=== PATIENT | female | born 1970 | race American Indian/Alaskan Native ===

== ENCOUNTER 2016-09-09 21:57 | Emergency (ER) | payer OTHER ==
[2016-09-09 23:30] LABS: Basophils % (Auto) 0.3 % (0.0-1.8); Eosinophils % (Auto) 1.2 % (0.0-4.3); Hemoglobin 11.9 gm/dl (10.1-14.3); Mean Corpuscular HGB Conc 31 % (30-34); Mean Corpuscular Volume 74 fl (79-97); Platelet Count 348 K/mm3 (140-440); Red Blood Count 5.17 M/mm3 (3.65-5.03); Red Cell Distribution Width 19.6 % (13.2-15.2); White Blood Count 14.2 K/mm3 (4.5-11.0)
[2016-09-09 23:32] LABS: Anion Gap 21 mmol/L; BUN/Creatinine Ratio 15.71; Blood Urea Nitrogen 11 mg/dL (7-17); Calcium 9.2 mg/dL (8.4-10.2); Carbon Dioxide 22 mmol/L (22-30); Chloride 98.2 mmol/L (98-107); Glucose 99 mg/dL (65-100); Potassium 3.6 mmol/L (3.6-5.0); Sodium 138 mmol/L (137-145)
[2016-09-09 23:41] LABS: Mean Corpuscular Hemoglobin 23 pg (28-32)
[2016-09-10 00:37] LABS: Bacteria,Urine 2+ /HPF (Negative); Bilirubin,Urine NEG (Negative); Blood,Urine SM (Negative); Ketones,Urine NEG (Negative); Leukocyte Esterase,Urine LG (Negative); Mucus,Urine 3+ /HPF; Nitrite,Urine NEG (Negative); Urobilinogen,Urine < 2.0 mg/dL (<2.0)
[2016-09-10] MEDS ORDERED: TORADOL IV ONE (07:28)
--- NOTE | 2016-09-10 07:46 | Emergency Department Report ---
ED Chest Pain HPI - General Chief Complaint: Chest Pain Stated Complaint: CHEST PAIN, HAEADACHE, LOOSE BM Time Seen by Provider: 09/10/16 06:05 Source: patient Mode of arrival: Ambulatory Limitations: No Limitations - History of Present Illness Initial Comments: Pt is a 46 yr old female with no PMhx who presents with left sided, intermittent , sharp chest pain. Pt reports she was sitting at home when the pain started. No radiation, back pain, jaw pain, parasthesias, or prior episodes of chest pain. Pt also reports frequent urination. Otherwise no fevers, chills, FERGUSON, NVD, SOB, abd pain, travel, hemoptysis, h/o malignancy, hormone therapy, calf pain, or sick contacts. Severity scale (0 -10): 0 - Related Data Previous Rx's Medication Instructions Recorded Last Taken Type Cefdinir 300 mg PO BID #14 capsule 09/10/16 Unknown Rx Naproxen [Naprosyn] 500 mg PO BID PRN #14 tablet 09/10/16 Unknown Rx Allergies Allergy/AdvReac Type Severity Reaction Status Date / Time No Known Allergies Allergy Verified 09/09/16 22:13 TONIA score - Tonia Score Age > 65: (0) No Aspirin use within the Past 7 Days: (0) No 3 or more CAD Risk Factors: (0) No 2 or more Angina events in past 24 hrs: (0) No Known CAD with more than 50% Stenosis: (0) No Elevated Cardiac Markers: (0) No ST Deviation Greater than 0.5mm: (0) No TONIA Score: 0 ED Review of Systems ROS: Stated complaint: CHEST PAIN, HAEADACHE, LOOSE BM Other details as noted in HPI Comment: All other systems reviewed and negative ED Past Medical Hx - Past Medical History Previous Medical History?: Yes Hx Pulmonary Embolism: Yes Hx Asthma: Yes Additional medical history: ABNORMAL BLOOD DISORDER - Surgical History Past Surgical History?: No - Social History Smoking Status: Never Smoker Substance Use Type: Alcohol - Medications Home Medications: Home Medications Medication Instructions Recorded Confirmed Last Taken Type Cefdinir 300 mg PO BID #14 capsule 09/10/16 Unknown Rx Naproxen [Naprosyn] 500 mg PO BID PRN #14 tablet 09/10/16 Unknown Rx ED Physical Exam - General Limitations: No Limitations, Other General appearance: other (Morbidly obese) - Head Head exam: Present: atraumatic, normocephalic - Eye Eye exam: Present: normal appearance - ENT ENT exam: Present: mucous membranes moist - Neck Neck exam: Present: normal inspection - Respiratory Respiratory exam: Present: normal lung sounds bilaterally. Absent: respiratory distress - Cardiovascular Cardiovascular Exam: Present: regular rate, normal rhythm, normal heart sounds. Absent: irregular rhythm, systolic murmur, diastolic murmur, rubs, gallop - GI/Abdominal GI/Abdominal exam: Present: soft, normal bowel sounds. Absent: distended, tenderness, guarding, rebound - Extremities Exam Extremities exam: Present: normal inspection - Back Exam Back exam: Present: normal inspection - Neurological Exam Neurological exam: Present: alert, oriented X3 - Psychiatric Psychiatric exam: Present: normal affect, normal mood - Skin Skin exam: Present: warm, dry, intact, normal color. Absent: rash ED Course Vital Signs 09/09/16 09/10/16 09/10/16 22:13 02:25 06:39 Temperature 98.0 F 97.8 F Pulse Rate 98 H 70 76 Respiratory 20 14 16 Rate Blood Pressure 131/87 141/92 Blood Pressure 122/78 [Right] O2 Sat by Pulse 100 100 99 Oximetry ED Medical Decision Making - Lab Data Result diagrams: 09/09/16 22:23 09/09/16 22:23 - EKG Data -: EKG Interpreted by Me ([id number], biatrial enlargement) EKG shows normal: sinus rhythm, axis (normal axis), intervals (Qtc:405ms), ST-T waves ((-)ST changes, TWI III, aVF) Rate: normal (94 bpm) - EKG Data When compared to previous EKG there are: previous EKG unavailable - Radiology Data CXR: No acute findings as visualized by me Results discussed with patient. Instructed patient to follow with her primary care. If she experiences more chest pain, shortness of breath, or her symptoms return patient to return to the closest ER. Critical care attestation.: If time is entered above; I have spent that time in minutes in the direct care of this critically ill patient, excluding procedure time. ED Disposition Clinical Impression: Chest wall pain, UTI (urinary tract infection) Disposition: DISCHARGED TO HOME OR SELFCARE Is pt being admited?: No Condition: Stable Instructions: Chest Pain (ED), Urinary Tract Infection in Women (ED) Prescriptions: Cefdinir 300 mg PO BID #14 capsule Naproxen [Naprosyn] 500 mg PO BID PRN #14 tablet PRN Reason: Pain Referrals: PRIMARY CARE,MD [Primary Care Provider] - 3-5 Days
--- NOTE | 2016-09-10 09:50 | XRay Report ---
CHEST TWO VIEWS: 09/10/16 CLINICAL: Chest pain. COMPARISON: None FINDINGS: Normal heart and pulmonary vasculature. The lungs are normally expanded and clear.The bones and soft tissues are unremarkable. IMPRESSION: Normal chest.
[2016-09-10 10:07] VITALS: BP 122/74
== END 2016-09-10 10:06 | disposition home or self-care (01) ==
LOC: ED 21:57
DX: N39.0 Urinary tract infection, site not specified (principal); R07.89 Other chest pain; J45.909 Unspecified asthma, uncomplicated
CPT/HCPCS: 36415; 71020; 80048; 81001; 81025; 84484; 85025; 85379; 87086; 93005; 93010; 99285

== ENCOUNTER 2017-05-13 00:45 | Emergency (ER) | payer SELFPAY ==
[2017-05-13 01:08] VITALS: BP 150/130
[2017-05-13] MEDS ORDERED: ASPIRIN PO ONE (01:08)
[2017-05-13 02:15] LABS: Basophils % (Auto) 0.1 % (0.0-1.8); Eosinophils # (Auto) 0.3 K/mm3 (0.0-0.4); Eosinophils % (Auto) 2.1 % (0.0-4.3); Hematocrit 37.1 % (30.3-42.9); Hemoglobin 11.8 gm/dl (10.1-14.3); Lymphocytes # (Auto) 3.1 K/mm3 (1.2-5.4); Lymphocytes % (Auto) 24.4 % (13.4-35.0); Mean Corpuscular HGB Conc 32 % (30-34); Mean Corpuscular Hemoglobin 23 pg (28-32); Mean Corpuscular Volume 73 fl (79-97); Monocytes # (Auto) 1.1 K/mm3 (0.0-0.8); Platelet Count 327 K/mm3 (140-440); Red Blood Count 5.06 M/mm3 (3.65-5.03); Red Cell Distribution Width 19.8 % (13.2-15.2)
[2017-05-13 02:17] LABS: BUN/Creatinine Ratio 10; Blood Urea Nitrogen 9 mg/dL (7-17); Calcium 8.7 mg/dL (8.4-10.2); Hemolysis Index 16
== END 2017-05-13 03:40 | disposition left against medical advice (07) ==
LOC: ED 00:45
DX: R07.9 Chest pain, unspecified (principal); Z53.21 Procedure and treatment not carried out due to patient leaving prior to being seen by health care provider
CPT/HCPCS: 36415; 80048; 84484; 84702; 84703; 85025; 93005; 93010

== ENCOUNTER → 2017-05-13 | Emergency (ER) | payer SELFPAY | LOC: TRG 00:07 → EDSTATUS 00:47 → ED 00:50 | DX: Z53.21 Procedure and treatment not carried out due to patient leaving prior to being seen by health care provider (principal) ==